=== PATIENT | female | born 2000 | race Caucasian/White ===

== ENCOUNTER → 2021-11-30 17:03 | Observation (INO) ==
[2021-11-30 14:49] LABS: Basophils % 0.2 %; Eosinophils # 0.1 K/mcL (0.0-0.6); Eosinophils % 0.9 %; Hematocrit 37.1 % (35.3-44.9); Hemoglobin 12.6 g/dL (11.5-15.4); Immature Granulocytes % 0.4 % (0-4); Lymphocytes # 1.9 K/mcL (0.6-4.6); Mean Corpuscular Hemoglobin 29.4 pg (28.0-33.3); Mean Corpuscular Volume 86.5 fL (83.0-100.0); Mean Platelet Volume 11.4 fL (9.4-12.4); Monocytes # 1.1 K/mcL (0.0-1.3); Monocytes % 8.4 %; Neutrophils # 9.4 K/mcL (1.6-8.9); Platelet Count 271 K/mcL (140-400); Red Blood Count 4.29 M/mcL (3.82-4.97); Red Cell Distribution Width 12.9 % (11.5-14.5); Segmented Neutrophils % 75.1 %; White Blood Count 12.6 K/mcL (4.3-11.1)
[2021-11-30 15:03] LABS: Protein/Creatinine Ratio,Urine 0.21 mg/mg (0.00-0.20)
[2021-11-30 15:06] LABS: Alanine Aminotransferase 9 Units/L (7-52); Aspartate Amino Transferase 10 Units/L (13-39); BUN/Creatinine Ratio 13 (6-26); Blood Urea Nitrogen 8 mg/dL (6-20); Lactate Dehydrogenase 142 Units/L (140-271); Uric Acid 5.9 mg/dL (2.3-7.6)
[~2021-11-30 17:03] MED LIST: Acetaminophen 325 MG TABLET PO ONE
[2021-12-01 00:18] LABS: Candida DNA DETECTED (Not Detect); Gardnerella DNA DETECTED (Not Detect); Trichomonas DNA Not Detected (Not Detect)
== END | disposition home or self-care (01) ==
LOC: 1NENULAB
PROVIDERS: ADMIT Obstetrics & Gynecology; ATTEND Obstetrics & Gynecology

== ENCOUNTER 2021-12-07 12:56 | Observation (INO) ==
[2021-12-07 14:00] LABS: Bilirubin,Urine Negative (Negative); Blood,Urine Negative (Negative); Clarity,Urine Clear (Clear); Color,Urine Colorless (Yellow); Glucose,Urine (UA) Normal (Normal); Ketones,Urine Negative (Negative); Leukocyte Esterase,Urine Moderate (Negative); Nitrite,Urine Negative (Negative); PH,Urine 6.5 pH Units (5.0-8.0); Protein,Urine Negative (Neg-Trace); RBC,Urine 0-3 per hpf (0-3); Specific Gravity,Urine < 1.005 (1.010-1.025); Squamous Epithelial Cell,Urine Few per hpf (None-Few); Urobilinogen,Urine Normal (Normal); WBC,Urine 0-3 per hpf (0-3)
[2021-12-07 14:05] LABS: Basophils % 0.3 %; Eosinophils # 0.1 K/mcL (0.0-0.6); Hematocrit 36.5 % (35.3-44.9); Hemoglobin 12.3 g/dL (11.5-15.4); Immature Granulocytes % 0.5 % (0-4); Lymphocytes # 1.7 K/mcL (0.6-4.6); Lymphocytes % 14.7 %; Mean Corpuscular HGB Conc 33.7 g/dL (31.6-35.5); Mean Corpuscular Hemoglobin 28.9 pg (28.0-33.3); Mean Corpuscular Volume 85.9 fL (83.0-100.0); Mean Platelet Volume 11.8 fL (9.4-12.4); Monocytes # 0.9 K/mcL (0.0-1.3); Monocytes % 7.5 %; Platelet Count 284 K/mcL (140-400); Red Blood Count 4.25 M/mcL (3.82-4.97); White Blood Count 11.8 K/mcL (4.3-11.1)
[2021-12-07 14:06] LABS: Protein/Creatinine Ratio,Urine 0.13 mg/mg (0.00-0.20)
[2021-12-07 14:20] LABS: Alanine Aminotransferase 8 Units/L (7-52); Aspartate Amino Transferase 10 Units/L (13-39); BUN/Creatinine Ratio 12 (6-26); Blood Urea Nitrogen 7 mg/dL (6-20); Lactate Dehydrogenase 148 Units/L (140-271); Uric Acid 6.7 mg/dL (2.3-7.6)
== END 2021-12-07 15:30 | disposition home or self-care (01) ==
LOC: 1NENULAB
PROVIDERS: ADMIT Registered Nurse; ATTEND Registered Nurse

== ENCOUNTER 2021-12-10 13:03 | Observation (INO) ==
[2021-12-10 13:55] LABS: Basophils % 0.3 %; Eosinophils # 0.1 K/mcL (0.0-0.6); Hematocrit 38.2 % (35.3-44.9); Hemoglobin 12.7 g/dL (11.5-15.4); Immature Granulocytes % 0.3 % (0-4); Lymphocytes # 1.6 K/mcL (0.6-4.6); Lymphocytes % 14.1 %; Mean Corpuscular HGB Conc 33.2 g/dL (31.6-35.5); Mean Corpuscular Hemoglobin 28.7 pg (28.0-33.3); Mean Corpuscular Volume 86.4 fL (83.0-100.0); Mean Platelet Volume 11.2 fL (9.4-12.4); Monocytes # 0.7 K/mcL (0.0-1.3); Platelet Count 256 K/mcL (140-400); Red Blood Count 4.42 M/mcL (3.82-4.97); Segmented Neutrophils % 78.3 %; White Blood Count 11.5 K/mcL (4.3-11.1)
[2021-12-10 14:04] LABS: Protein/Creatinine Ratio,Urine 0.25 mg/mg (0.00-0.20)
[2021-12-10 14:15] LABS: Alanine Aminotransferase 8 Units/L (7-52); Aspartate Amino Transferase 10 Units/L (13-39); BUN/Creatinine Ratio 10 (6-26); Blood Urea Nitrogen 6 mg/dL (6-20); Lactate Dehydrogenase 165 Units/L (140-271); Uric Acid 6.7 mg/dL (2.3-7.6)
[2021-12-10 14:26] LABS: Bacteria,Urine Few per hpf (None-Few); Bilirubin,Urine Negative (Negative); Blood,Urine Negative (Negative); Clarity,Urine Turbid (Clear); Color,Urine Light-Yellow (Yellow); Glucose,Urine (UA) Normal (Normal); Ketones,Urine Negative (Negative); Leukocyte Esterase,Urine Large (Negative); Nitrite,Urine Negative (Negative); Protein,Urine Negative (Neg-Trace); Specific Gravity,Urine 1.007 (1.010-1.025); Squamous Epithelial Cell,Urine Few per hpf (None-Few); Urobilinogen,Urine Normal (Normal); WBC,Urine 15-30 per hpf (0-3)
[2021-12-10] MEDS ORDERED: Metoclopramide 10 MG/2 ML VIAL IVP ONE (14:26)
== END 2021-12-10 14:58 | disposition home or self-care (01) ==
LOC: 1NENULAB
PROVIDERS: ADMIT Obstetrics & Gynecology; ATTEND Obstetrics & Gynecology

== ENCOUNTER 2021-12-24 09:35 | Inpatient (IN) ==
[2021-12-24] MEDS ORDERED: Ondansetron 4 MG/2 ML VIAL IVP PRN (09:52)
[2021-12-24] MEDS ORDERED: Metoclopramide 10 MG/2 ML VIAL IVP PRN (09:52)
[2021-12-24] MEDS ORDERED: Naloxone 0.4 MG/ML INJ IVP PRN (09:52)
[2021-12-24] MEDS ORDERED: Famotidine 20 MG/2 ML VIAL IVP PRN (09:52)
[2021-12-24] MEDS ORDERED: *HR* Nalbuphine 10 MG/ML AMPUL IV PRN (09:52)
[2021-12-24] MEDS ORDERED: Azithromycin 500 MG in 0.9 % Sodium Chloride 250 ML IVPB PRN (09:52)
[2021-12-24] MEDS ORDERED: Lidocaine 1% 20 ML MDV INFILT PRN (09:52)
[2021-12-24] MEDS ORDERED: Penicillin G Potassium 5,000,000 UNIT in 0.9 % Sodium Chloride Mini Bag 100 ML IVPB ONE (10:00)
[2021-12-24] MEDS ORDERED: Ringers Solution, Lactated 1,000 ML IVC SCH (10:00)
[2021-12-24] MEDS ORDERED: miSOPROStoL 25 MCG TABLET PO PRN (10:22)
[2021-12-24 11:15] LABS: Basophils % 0.3 %; Eosinophils # 0.1 K/mcL (0.0-0.6); Eosinophils % 1.1 %; Hemoglobin 11.9 g/dL (11.5-15.4); Immature Granulocytes % 0.6 % (0-4); Lymphocytes # 1.5 K/mcL (0.6-4.6); Lymphocytes % 12.2 %; Mean Corpuscular HGB Conc 33.1 g/dL (31.6-35.5); Mean Corpuscular Hemoglobin 28.3 pg (28.0-33.3); Mean Corpuscular Volume 85.5 fL (83.0-100.0); Mean Platelet Volume 11.6 fL (9.4-12.4); Monocytes # 0.9 K/mcL (0.0-1.3); Monocytes % 7.6 %; Neutrophils # 9.4 K/mcL (1.6-8.9); Platelet Count 254 K/mcL (140-400); Red Blood Count 4.21 M/mcL (3.82-4.97); Red Cell Distribution Width 13.2 % (11.5-14.5); Segmented Neutrophils % 78.2 %
[2021-12-24 11:24] LABS: Amphetamine Screen,Urine Negative ng/mL (Cutoff=1000); Barbiturate Screen,Urine Negative ng/mL (Cutoff=200); Benzodiazepines Screen,Urine Negative ng/mL (Cutoff=200); Cannabinoid Screen,Urine Negative ng/mL (Cutoff = 50); Cocaine Screen,Urine Negative ng/mL (Cutoff= 300); Creatinine,Urine 118 mg/dL; Opiate Screen,Urine Negative ng/mL (Cutoff=300); Phencyclidine Screen,Urine Negative ng/mL (Cutoff=25); Protein/Creatinine Ratio,Urine 0.37 mg/mg (0.00-0.20)
[2021-12-24 11:35] LABS: Alanine Aminotransferase 8 Units/L (7-52); Aspartate Amino Transferase 9 Units/L (13-39); BUN/Creatinine Ratio 13 (6-26); Blood Urea Nitrogen 9 mg/dL (6-20); Lactate Dehydrogenase 142 Units/L (140-271); Uric Acid 6.6 mg/dL (2.3-7.6)
[2021-12-24] MEDS ORDERED: EPHEDrine 50 MG/ML VIAL IVP PRN (12:06)
[2021-12-24] MEDS ORDERED: Epidural Premix (fent/bupiv) 110 ML EP SCH (12:15)
[2021-12-24] MEDS ORDERED: Penicillin G Potassium 2,500,000 UNIT/105 ML MLS IVPB SCH (14:00)
[2021-12-24] MEDS ORDERED: Oxytocin 30 UNIT/503 ML BAG IVC SCH (16:15)
[2021-12-24] MEDS ORDERED: 0.9 % Sodium Chloride 1,000 ML ONE (20:48)
[2021-12-25] MEDS ORDERED: Lanolin 7 G OINT...G. TP PRN (02:27)
[2021-12-25] MEDS ORDERED: Ondansetron ODT 4 MG TAB.RAPDIS SL PRN (02:27)
[2021-12-25] MEDS ORDERED: OXYTOCIN/RINGERS LACTATE 10 UNIT/166.6 ML BAG IVC ONE (02:27)
[2021-12-25] MEDS ORDERED: Benzocaine/Menthol 56 GM AEROSOL SPRAY TP PRN (02:27)
[2021-12-25] MEDS ORDERED: Oxytocin 30 UNIT/503 ML BAG IVC SCH (02:27)
[2021-12-25] MEDS: Prenatal Vit/FA 1 EACH TABLET PO SCH (07:57)
[2021-12-25] MEDS: Ibuprofen 600 MG TABLET PO SCH (20:13)
[2021-12-26] MEDS: Acetaminophen 325 MG TABLET PO SCH ×2 (04:18→09:31)
[2021-12-26 04:26] VITALS: O2SAT 98
[2021-12-26 06:25] VITALS: BP 117/85; PULSE 79; TEMP 97.9
[2021-12-26] MEDS: Ibuprofen 600 MG TABLET PO SCH (09:31)
[2021-12-26] MEDS: Prenatal Vit/FA 1 EACH TABLET PO SCH (09:31)
== END 2021-12-26 11:05 | disposition home or self-care (01) | DRG 560 ==
LOC: 1NENULAB 09:35 → 1NENUOBS 12-25 02:20
PROVIDERS: ADMIT Advanced Practice Midwife; ATTEND Advanced Practice Midwife